=== PATIENT | female | born 1960 | race Caucasian/White ===

== ENCOUNTER 2023-11-10 00:51 | Inpatient (IN) | payer OTHER ==
[2023-11-10] VITALS (58 sets, daily range): BP systolic 57–130; BP diastolic 34–102; PULSE 94–110; RESP 19–36; TEMP 97.3–98.8
[~2023-11-10] VITALS: Ht 162.6 cm; Wt 78.5 kg
[2023-11-10 01:49] LABS: HEMATOCRIT. 32.2 % (36.0-48.0); HEMOGLOBIN. 10.7 g/dL (12.0-16.0); MEAN CORPUSCULAR HGB CONC 33.2 g/dL (31.0-37.0); MEAN CORPUSCULAR VOLUME 93.2 fL (81.0-99.0); MEAN PLATELET VOLUME 9.7 fl (7.4-10.4); PLATELET 149 x1000/uL (130-400); RED BLOOD CELL COUNT 3.46 mill/uL (4.2-5.4); WHITE BLOOD COUNT 9.9 x1000/uL (4.5-11.0)
[2023-11-10 01:51] LABS: DIFFERENTIAL COMMENT 1
[2023-11-10 01:54] LABS: PARTIAL THROMBOPLASTIN TIME 30.3 sec (23.4-31.0); PROTHROMBIN TIME 11.4 sec (9.6-11.0)
[2023-11-10] MEDS: SODIUM CHLORIDE 0.9% 1000ML BAG (SEPSIS BOLUS) IV ONE (02:00)
[2023-11-10 02:07] LABS: ALANINE AMINOTRANSFERASE 112 IU/L (10-49); ALBUMIN 3.3 g/dL (3.2-4.8); ASPARTATE AMINOTRANSFERASE 217 IU/L (<34); BILIRUBIN TOTAL 1.2 mg/dL (0.1-1.0); CALCIUM 7.7 mg/dL (8.7-10.4); CARBON DIOXIDE 20 mEq/L (21-32); CHLORIDE 105 mEq/L (98-107); CREATININE 1.5 mg/dL (0.6-1.0); GLUCOSE 108 mg/dL (70-105); POTASSIUM 2.9 mEq/L (3.5-5.1); PROTEIN TOTAL 5.7 g/dL (6.0-8.3); SODIUM 136 mEq/L (136-145); TROPONIN I HIGH SENSITIVITY 13 ng/L (3.0-34); UREA NITROGEN BLOOD 12 mg/dL (9-23)
[2023-11-10 02:12] LABS: LACTIC ACID 4.7 mmol/L (0.4-2.0)
[2023-11-10] MEDS: PIPERACILLIN/TAZO 3.375G/50ML 50 ML IV ONE (02:25)
[2023-11-10] MEDS: ONDANSETRON HCL 4MG/2ML INJ IV ONE (02:35)
[2023-11-10] MEDS: NOREPINEPHRINE 8MG/250ML PMX 250 ML IV ONE (02:57)
[2023-11-10] MEDS: SODIUM CHLORIDE 0.9% 1,000 ML IV ONE (03:13)
[2023-11-10] MEDS: KETOROLAC 15MG/ML VIAL IV ONE (03:25)
[2023-11-10] MEDS: VANCOMYCIN 1G PREMIX 200 ML IV ONE (03:30)
[2023-11-10 03:32] LABS: TROPONIN I HIGH SENSITIVITY 13 ng/L (3.0-34)
[2023-11-10 04:46] LABS: PLATELET ESTIMATE NORMAL
[2023-11-10 04:47] LABS: HOWELL-JOLLY BODIES 1+; TOXIC GRANULATION 1+
[2023-11-10] MEDS ORDERED: NOREPINEPHRINE 8MG/250ML PMX 250 ML IV PRN ×2 (07:21→08:00)
[2023-11-10] MEDS ORDERED: POTASSIUM CHLORIDE 20MEQ TABLET SR PO NR (08:15)
[2023-11-10] MEDS: SODIUM CHLORIDE 0.9% 1,000 ML IV SCH (09:00)
[2023-11-10] MEDS: KCL 20MEQ/100ML PREMIX 100 ML IV NR (09:00)
[2023-11-10] MEDS ORDERED: METRONIDAZOLE 500 MG PREMIX 100 ML IV SCH (10:00)
[2023-11-10] MEDS: MAGNESIUM 2 G PREMIX 50 ML IV NR (10:27)
[2023-11-10] MEDS: CEFTRIAXONE 2GM/50ML 50 ML IV SCH (10:28)
[2023-11-10] MEDS: ONDANSETRON HCL 4MG/2ML INJ IV PRN (10:59)
[2023-11-10] MEDS: METRONIDAZOLE 500 MG PREMIX 100 ML IV SCH (14:00)
[2023-11-10] MEDS: LACTATED RINGERS 1,000 ML IV ONE (14:15)
[2023-11-10 15:54] LABS: BG BASE EXCESS -10.2 mmol/L (-2.0-2.0); BG CARBOXYHEMOGLOBIN 0.3 % (0.5-1.5); BG DEOXYHEMOGLOBIN 6.2 % (0.0-5.0); BG FRACTION INSPIRED OXYGEN 21; BG METHEMOGLOBIN 0.4 % (0.0-1.5); BG OXYGEN SATURATION 93.8 % (92.0-98.5); BG OXYHEMOGLOBIN 93.1 % (94.0-97.0); BG PCO2 26.5 mmHg (35.0-45.0); BG PO2 69.7 mmHg (75.0-100.0); BG SAMPLE SITE RIGHT RADIAL; BG TOTAL HEMOGLOBIN 12.6 g/dL (12.0-18.0); BG VENT MODE ROOM AIR
[2023-11-10 18:05] LABS: HEMATOCRIT 35.8 % (36.0-48.0); HEMOGLOBIN 11.3 g/dL (12.0-16.0); MEAN CORPUSCULAR HGB CONC 31.6 g/dL (31.0-37.0); MEAN CORPUSCULAR VOLUME 95.1 fL (81.0-99.0); PLATELET 219 x1000/uL (130-400); RED BLOOD CELL COUNT 3.77 mill/uL (4.2-5.4); RED CELL DISTRIBUTION WIDTH 15.2 % (11.6-14.6); WHITE BLOOD COUNT 34.6 x1000/uL (4.5-11.0)
[2023-11-10 18:30] LABS: CALCIUM 7.1 mg/dL (8.7-10.4); POTASSIUM 4.2 mEq/L (3.5-5.1)
[2023-11-10] MEDS ORDERED: INSULIN LISPRO 100 UNITS/ML SUBCUT ONE (18:30)
[2023-11-10 18:31] LABS: CREATININE 2.8 mg/dL (0.6-1.0)
[2023-11-10] MEDS: ENOXAPARIN 40MG/0.4ML SYR SUBCUT SCH (18:36)
[2023-11-10] MEDS: HYDROCODONE/ACETAMINOPHEN 5/325MG TABLET PO PRN (19:29)
[2023-11-10] MEDS ORDERED: CLONIDINE 0.1MG TABLET PO PRN (19:30)
[2023-11-10] MEDS: VANCOMYCIN 500MG PREMIX 100 ML IV NR (20:00)
[2023-11-10] MEDS: MEROPENEM 500MG/50ML 50 ML IV SCH (20:47)
[2023-11-10] MEDS: NOREPINEPHRINE 32 MG in DEXT 5% WATER 218 ML IV PRN (21:06)
[2023-11-10] MEDS ORDERED: MEROPENEM 1G/100ML 100 ML IV SCH (22:00)
[2023-11-10] MEDS ORDERED: VANCOMYCIN 750MG PREMIX 150 ML IV SCH (22:00)
[2023-11-10] MEDS: ACETAMINOPHEN 325MG TABLET PO PRN (22:49)
[2023-11-11] VITALS (121 sets, daily range): BP systolic 48–203; BP diastolic 13–89; PULSE 73–175; RESP 0–42; TEMP 94.3–98.6
[2023-11-11] MEDS: MORPHINE SULFATE 2 MG/ML CPJ (NOT FOR IM USE) IV NR ×2 (03:23→09:50)
[2023-11-11 04:43] LABS: HEMATOCRIT. 40.5 % (36.0-48.0); HEMOGLOBIN. 12.7 g/dL (12.0-16.0); MEAN CORPUSCULAR HEMOGLOBIN 29.9 pg (28.0-32.0); MEAN CORPUSCULAR HGB CONC 31.5 g/dL (31.0-37.0); MEAN CORPUSCULAR VOLUME 95.1 fL (81.0-99.0); MEAN PLATELET VOLUME 9.8 fl (7.4-10.4); PLATELET 211 x1000/uL (130-400); RED BLOOD CELL COUNT 4.26 mill/uL (4.2-5.4); RED CELL DISTRIBUTION WIDTH 15.1 % (11.6-14.6)
[2023-11-11 05:01] LABS: ALANINE AMINOTRANSFERASE 186 IU/L (10-49); ALBUMIN 3.3 g/dL (3.2-4.8); ASPARTATE AMINOTRANSFERASE 227 IU/L (<34); BILIRUBIN DIRECT 1.2 mg/dL (<=3.0); BILIRUBIN TOTAL 1.5 mg/dL (0.1-1.0); CALCIUM 7.3 mg/dL (8.7-10.4); CARBON DIOXIDE 14 mEq/L (21-32); CHLORIDE 108 mEq/L (98-107); CHOLESTEROL 87 mg/dL (<200); CREATININE 3.5 mg/dL (0.6-1.0); GLUCOSE 113 mg/dL (70-105); HDL CHOLESTEROL < 20 mg/dL (>65); LDL CHOLESTEROL 28 mg/dL (5-100); PHOSPHORUS 5.1 mg/dL (2.5-4.9); POTASSIUM 5.5 mEq/L (3.5-5.1); PROTEIN TOTAL 5.9 g/dL (6.0-8.3); SODIUM 136 mEq/L (136-145); TRIGLYCERIDE 120 mg/dL (0-150); UREA NITROGEN BLOOD 27 mg/dL (9-23)
[2023-11-11 05:28] LABS: TROPONIN I HIGH SENSITIVITY 8888 ng/L (3.0-34)
[2023-11-11] MEDS ORDERED: HEPARIN BOLUS PRN aPTT <30 IV (06:00)
[2023-11-11] MEDS ORDERED: HEPARIN BOLUS PRN aPTT 30-44 IV ×2 (06:00)
[2023-11-11] MEDS: HEPARIN 25,000 UNITS PREMIX 250 ML IV SCH (06:13)
[2023-11-11] MEDS: PHENYLEPHRINE 50MG/250ML PMX 250 ML IV PRN (06:29)
[2023-11-11] MEDS: HEPARIN 60 UNITS/KG BOLUS IV NR (06:37)
[2023-11-11 06:46] LABS: DIFFERENTIAL COMMENT 1; WHITE BLOOD COUNT 48.4 x1000/uL (4.5-11.0)
[2023-11-11] MEDS: VASOPRESSIN 20 UNIT in SODIUM CHLORIDE 0.9% 99 ML IV PRN (07:03)
[2023-11-11] MEDS: SODIUM BICARBONATE 8.4% 1 MEQ/ML 50ML SYR IV NR ×4 (07:55→13:38)
[2023-11-11] MEDS ORDERED: DOXYCYCLINE HYCLATE 100 MG/VIAL IV SCH (08:00)
[2023-11-11] MEDS: LIDOCAINE HCL 1% 10 MG/ML 5ML VIAL IJ NR (08:12)
[2023-11-11] MEDS ORDERED: HYDROCORTISONE SOD SUCCINATE 100 MG/2 ML VIAL IV SCH (09:00)
[2023-11-11] MEDS: CALCIUM GLUCONATE 1GM PREMIX 50 ML IV NR (09:13)
[2023-11-11] MEDS: PANTOPRAZOLE SODIUM 40 MG/VIAL IV SCH (09:13)
[2023-11-11] MEDS: DOXYCYCLINE 100MG/100ML 100 ML IV SCH (09:13)
[2023-11-11] MEDS: METHYLPREDNISOLONE SOD SUCC 40MG/ML (ACT-O-VIAL) IV SCH (09:16)
[2023-11-11 10:14] LABS: BG CARBOXYHEMOGLOBIN 0.3 % (0.5-1.5); BG DEOXYHEMOGLOBIN 4.4 % (0.0-5.0); BG FRACTION INSPIRED OXYGEN 100; BG HCO3 ACT 7.2 mmol/L (22.0-26.0); BG OXYGEN SATURATION 95.6 % (92.0-98.5); BG OXYHEMOGLOBIN 95.3 % (94.0-97.0); BG PCO2 19.4 mmHg (35.0-45.0); BG PH 7.187 (7.350-7.450); BG PO2 87.8 mmHg (75.0-100.0); BG SAMPLE SITE ALINE; BG TOTAL HEMOGLOBIN 12.6 g/dL (12.0-18.0); BG VENT MODE MASK - NRB
[2023-11-11] MEDS ORDERED: AMIODARONE HCL 150 MG in DEXT 5% WATER 100 ML IV ONE (10:30)
[2023-11-11 10:38] LABS: CHLORIDE 106 mEq/L (98-107); GLUCOSE 110 mg/dL (70-105); SODIUM 134 mEq/L (136-145)
[2023-11-11 10:39] LABS: CALCIUM 6.6 mg/dL (8.7-10.4); CREATINE KINASE 1027 IU/L (34-145); CREATININE 3.7 mg/dL (0.6-1.0); PHOSPHORUS 7.9 mg/dL (2.5-4.9); UREA NITROGEN BLOOD 34 mg/dL (9-23)
[2023-11-11 10:43] LABS: HEMATOCRIT 35.3 % (36.0-48.0); HEMOGLOBIN 11.5 g/dL (12.0-16.0)
[2023-11-11 10:47] LABS: PLATELET ESTIMATE NORMAL
[2023-11-11] MEDS: MAGNESIUM 2 G PREMIX 50 ML IV NR (10:47)
[2023-11-11] MEDS: AMIODARONE 150MG/100ML 100 ML IV NR (10:48)
[2023-11-11] MEDS: HYDROMORPHONE HCL/PF 2MG/ML CPJ IV NR (10:49)
[2023-11-11 11:04] LABS: TROPONIN I HIGH SENSITIVITY 124922 ng/L (3.0-34)
[2023-11-11 11:05] LABS: CARBON DIOXIDE < 10 mEq/L (21-32)
[2023-11-11] MEDS ORDERED: NALOXONE HCL 0.4MG/ML VIAL IV PRN (11:45)
[2023-11-11] MEDS ORDERED: FENTANYL 2500MCG/250ML PMX 250 ML IV ONE (11:45)
[2023-11-11] MEDS ORDERED: FENTANYL CITRATE 2,500 MCG in SODIUM CHLORIDE 0.9% 200 ML IV PRN (12:00)
[2023-11-11] MEDS: PROPOFOL 10MG/ML 100ML 100 ML IV PRN (12:01)
[2023-11-11] MEDS ORDERED: LIDOCAINE HCL 1% 10 MG/ML 10ML VIAL ONE (13:04)
[2023-11-11 13:14] LABS: BG BASE EXCESS -20.8 mmol/L (-2.0-2.0); BG CARBOXYHEMOGLOBIN 0.3 % (0.5-1.5); BG DEOXYHEMOGLOBIN 2.6 % (0.0-5.0); BG FRACTION INSPIRED OXYGEN 50; BG METHEMOGLOBIN 0.3 % (0.0-1.5); BG OXYGEN SATURATION 97.4 % (92.0-98.5); BG OXYHEMOGLOBIN 96.8 % (94.0-97.0); BG PCO2 28.2 mmHg (35.0-45.0); BG PH 7.071 (7.350-7.450); BG PO2 124.7 mmHg (75.0-100.0); BG SAMPLE SITE ALINE; BG TOTAL HEMOGLOBIN 12.4 g/dL (12.0-18.0); BG VENT MODE VENT - AC
[2023-11-11] MEDS: SODIUM POLYSTYRENE SULFONATE 15 G/60 ML BOT PO NR (13:20)
[2023-11-11] MEDS: SODIUM BICARBONATE 150 MEQ in DEXTROSE 5% WATER 850 ML IV SCH (13:20)
[2023-11-11] MEDS ORDERED: AMIODARONE HCL 900 MG in DEXT 5% WATER 482 ML IV SCH (13:30)
[2023-11-11 14:07] LABS: TROPONIN I HIGH SENSITIVITY 33541 ng/L (3.0-34)
[2023-11-11 14:31] LABS: HEPATITIS A AB IGM NEGATIVE (Negative); HEPATITIS B CORE AB IGM NEGATIVE (Negative); HEPATITIS B SURFACE ANTIGEN NEGATIVE (Negative); HEPATITIS C AB NON REACTIVE (Neg) (Negative)
[2023-11-11 17:30] LABS: CLARITY URINE TURBID (CLEAR); COLOR URINE DARK YELLOW (YELLOW); GLUCOSE URINE TRACE (NEGATIVE); KETONES URINE TRACE (NEGATIVE); LEUKOCYTE ESTERASE URINE 1+ (NEGATIVE); NITRITE URINE NEGATIVE (NEGATIVE); OCCULT BLOOD URINE 2+ (NEGATIVE); PH URINE 5.5 (4.5-8.0); PROTEIN URINE 2+ (NEGATIVE); SPECIFIC GRAVITY URINE 1.021 (1.005-1.030); UROBILINOGEN URINE 0.2 E.U./dL (0.2-1.0)
[2023-11-11 17:49] LABS: BACTERIA URINE 4+; SQUAMOUS EPITHELIAL CELL URINE 1+ /lpf (RARE/1+)
[2023-11-11 17:50] LABS: FINE GRANULAR CASTS URINE 0-5 /lpf
[2023-11-11 18:33] LABS: CREATININE URINE RANDOM 129.4 mg/dL
[2023-11-11 19:08] LABS: BG CARBOXYHEMOGLOBIN 0.3 % (0.5-1.5); BG DEOXYHEMOGLOBIN 1.9 % (0.0-5.0); BG FRACTION INSPIRED OXYGEN 40; BG HCO3 ACT 12.5 mmol/L (22.0-26.0); BG METHEMOGLOBIN 0.1 % (0.0-1.5); BG OXYGEN SATURATION 98.1 % (92.0-98.5); BG OXYHEMOGLOBIN 97.7 % (94.0-97.0); BG PCO2 27.8 mmHg (35.0-45.0); BG PH 7.269 (7.350-7.450); BG PO2 131.9 mmHg (75.0-100.0); BG SAMPLE SITE ALINE; BG TOTAL HEMOGLOBIN 12.5 g/dL (12.0-18.0); BG VENT MODE VENT - AC
[2023-11-11] MEDS: IPRATROPIUM/ALBUTEROL 0.5-3(2.5)MG/3ML NEB HHN SCH (21:24)
[2023-11-12] VITALS (95 sets, daily range): BP systolic 80–139; BP diastolic 48–101; PULSE 74–112; RESP 24–37; TEMP 97.4–98.8
[2023-11-12 05:18] LABS: LACTIC ACID 12.7 mmol/L (0.4-2.0)
[2023-11-12 06:27] LABS: HEMOGLOBIN. 11.5 g/dL (12.0-16.0); MEAN CORPUSCULAR HEMOGLOBIN 29.8 pg (28.0-32.0); MEAN CORPUSCULAR HGB CONC 32.8 g/dL (31.0-37.0); MEAN CORPUSCULAR VOLUME 90.9 fL (81.0-99.0); MEAN PLATELET VOLUME 10.3 fl (7.4-10.4); PLATELET 162 x1000/uL (130-400); RED BLOOD CELL COUNT 3.85 mill/uL (4.2-5.4); RED CELL DISTRIBUTION WIDTH 14.6 % (11.6-14.6)
[2023-11-12 07:09] LABS: ALANINE AMINOTRANSFERASE 3259 IU/L (10-49); ALBUMIN 2.9 g/dL (3.2-4.8); BILIRUBIN TOTAL 2.3 mg/dL (0.1-1.0); CALCIUM 6.2 mg/dL (8.7-10.4); CARBON DIOXIDE 17 mEq/L (21-32); CHLORIDE 101 mEq/L (98-107); CREATININE 4.6 mg/dL (0.6-1.0); GLUCOSE 167 mg/dL (70-105); POTASSIUM 5.6 mEq/L (3.5-5.1); PROTEIN TOTAL 5.1 g/dL (6.0-8.3); SODIUM 137 mEq/L (136-145); TRIGLYCERIDE 153 mg/dL (0-150); UREA NITROGEN BLOOD 56 mg/dL (9-23)
[2023-11-12 07:20] LABS: PHOSPHORUS 8.5 mg/dL (2.5-4.9)
[2023-11-12 08:06] LABS: DIFFERENTIAL COMMENT 1; WHITE BLOOD COUNT 59.3 x1000/uL (4.5-11.0)
[2023-11-12 08:19] LABS: ASPARTATE AMINOTRANSFERASE 505 IU/L (<34)
[2023-11-12 08:27] LABS: BG BASE EXCESS -8.3 mmol/L (-2.0-2.0); BG CARBOXYHEMOGLOBIN 0.3 % (0.5-1.5); BG DEOXYHEMOGLOBIN 1.6 % (0.0-5.0); BG FRACTION INSPIRED OXYGEN 40; BG HCO3 ACT 16.1 mmol/L (22.0-26.0); BG METHEMOGLOBIN 0.3 % (0.0-1.5); BG OXYGEN SATURATION 98.4 % (92.0-98.5); BG OXYHEMOGLOBIN 97.8 % (94.0-97.0); BG PH 7.348 (7.350-7.450); BG PO2 137.1 mmHg (75.0-100.0); BG SAMPLE SITE ALINE; BG TOTAL HEMOGLOBIN 12.4 g/dL (12.0-18.0); BG TOTAL RESPIRATORY RATE 32 b/min; BG VENT MODE VENT - AC
[2023-11-12] MEDS: MEROPENEM 500MG/50ML 50 ML IV SCH (08:36)
[2023-11-12] MEDS: DIPHENHYDRAMINE 50MG/ML VIAL IV NR (09:14)
[2023-11-12 13:05] LABS: NUCLEATED RED BLOOD CELLS 1 /100 WBC
[2023-11-12 13:06] LABS: PLATELET ESTIMATE NORMAL
[2023-11-12] MEDS: DIPHENHYDRAMINE 50MG/ML VIAL IV PRN (13:54)
[2023-11-12] MEDS ORDERED: CLINDAMYCIN 600 MG in DEXTROSE 5% WATER 50 ML IV SCH (14:30)
[2023-11-12] MEDS: CLINDAMYCIN 600MG PREMIX 50 ML IV SCH (16:09)
[2023-11-12] MEDS ORDERED: VANCOMYCIN 500MG PREMIX 100 ML IV NR (18:00)
[2023-11-12] MEDS: PROPOFOL 10MG/ML 100ML 100 ML IV PRN (18:57)
[2023-11-13] VITALS (94 sets, daily range): BP systolic 68–139; BP diastolic 43–95; PULSE 65–94; RESP 16–32; TEMP 97.8–99.3
[2023-11-13 05:42] LABS: HEMATOCRIT 33.5 % (36.0-48.0); HEMATOCRIT. 33.5 % (36.0-48.0); HEMOGLOBIN 11.4 g/dL (12.0-16.0); HEMOGLOBIN. 11.4 g/dL (12.0-16.0); MEAN CORPUSCULAR HEMOGLOBIN 30.1 pg (28.0-32.0); MEAN CORPUSCULAR VOLUME 88.5 fL (81.0-99.0); MEAN PLATELET VOLUME 10.2 fl (7.4-10.4); PLATELET 112 x1000/uL (130-400); RED BLOOD CELL COUNT 3.79 mill/uL (4.2-5.4); RED CELL DISTRIBUTION WIDTH 14.1 % (11.6-14.6)
[2023-11-13 06:27] LABS: ALANINE AMINOTRANSFERASE > 3300 IU/L (10-49); ALBUMIN 2.4 g/dL (3.2-4.8); ASPARTATE AMINOTRANSFERASE 5053 IU/L (<34); BILIRUBIN TOTAL 2.4 mg/dL (0.1-1.0); CARBON DIOXIDE 24 mEq/L (21-32); CHLORIDE 98 mEq/L (98-107); CREATININE 3.9 mg/dL (0.6-1.0); GLUCOSE 171 mg/dL (70-105); PHOSPHORUS 5.6 mg/dL (2.5-4.9); POTASSIUM 4.8 mEq/L (3.5-5.1); PROTEIN TOTAL 4.3 g/dL (6.0-8.3); SODIUM 136 mEq/L (136-145); TRIGLYCERIDE 188 mg/dL (0-150); UREA NITROGEN BLOOD 50 mg/dL (9-23); VANCOMYCIN TROUGH 13.8 ug/mL (5.0-10.0)
[2023-11-13 06:35] LABS: CALCIUM 5.9 mg/dL (8.7-10.4)
[2023-11-13 06:40] LABS: DIFFERENTIAL COMMENT 1
[2023-11-13 06:42] LABS: WHITE BLOOD COUNT 40.9 x1000/uL (4.5-11.0)
[2023-11-13 09:07] LABS: BG CARBOXYHEMOGLOBIN 0.3 % (0.5-1.5); BG DEOXYHEMOGLOBIN 2.6 % (0.0-5.0); BG FRACTION INSPIRED OXYGEN 40; BG HCO3 ACT 23.8 mmol/L (22.0-26.0); BG METHEMOGLOBIN 0.2 % (0.0-1.5); BG OXYGEN SATURATION 97.4 % (92.0-98.5); BG OXYHEMOGLOBIN 96.9 % (94.0-97.0); BG PCO2 25.6 mmHg (35.0-45.0); BG PH 7.586 (7.350-7.450); BG PO2 102.1 mmHg (75.0-100.0); BG SAMPLE SITE ALINE; BG TOTAL HEMOGLOBIN 11.9 g/dL (12.0-18.0); BG VENT MODE VENT - AC
[2023-11-13 09:49] LABS: IRON 147 ug/dL (50-170); TOTAL IRON BINDING CAPACITY 403 ug/dl (250-425)
[2023-11-13] MEDS: MIDODRINE HCL 5MG TABLET PO SCH (13:16)
[2023-11-13] MEDS: CALCIUM GLUCONATE 1GM PREMIX 50 ML IV NR (13:16)
[2023-11-13 13:50] LABS: NUCLEATED RED BLOOD CELLS 1 /100 WBC; PLATELET ESTIMATE SLIGHTLY DECREASED
[2023-11-13] MEDS: VANCOMYCIN 1.25GM PMX (XELLIA) 250 ML IV NR (16:21)
[2023-11-13] MEDS ORDERED: ALBUMIN HUMAN 12.5GM/50ML (25%) IV ONE (21:17)
[2023-11-13] MEDS ORDERED: ALBUMIN HUMAN 25GM/100ML (25%) IV ONE (21:46)
[2023-11-13] MEDS ORDERED: ROCURONIUM BROMIDE 10MG/ML VIAL 5ML IV ONE ×2 (21:50)
[2023-11-13] MEDS ORDERED: FENTANYL CITRATE/PF 50MCG/ML 2ML VIAL ONE (21:54)
[2023-11-13] MEDS ORDERED: MIDAZOLAM HCL 2 MG/2 ML VIAL ONE (21:54)
[2023-11-13] MEDS ORDERED: ONDANSETRON HCL 4MG/2ML INJ ONE (22:02)
[2023-11-13] MEDS ORDERED: DEXAMETHASONE 4MG/ML 1ML VIAL ONE (22:02)
[2023-11-13] MEDS ORDERED: FENTANYL CITRATE/PF 50MCG/ML 2ML VIAL IV PRN (23:00)
[2023-11-13] MEDS ORDERED: HYDROMORPHONE HCL/PF 2MG/ML CPJ IV PRN (23:00)
[2023-11-14] VITALS (110 sets, daily range): BP systolic 64–147; BP diastolic 41–108; PULSE 55–97; RESP 15–30; TEMP 97.7–98.8
[2023-11-14 00:51] LABS: FERRITIN 4309 ng/mL (10-291); FOLIC ACID (FOLATE) SERUM 12.21 ng/mL (>5.38)
[2023-11-14 00:58] LABS: VITAMIN B12 SERUM > 2000 pg/mL (211-911)
[2023-11-14] MEDS: PROPOFOL 10MG/ML 100ML 100 ML IV PRN (02:57)
[2023-11-14 05:33] LABS: HEMATOCRIT. 31.9 % (36.0-48.0); HEMOGLOBIN. 10.7 g/dL (12.0-16.0); MEAN CORPUSCULAR HEMOGLOBIN 29.9 pg (28.0-32.0); MEAN CORPUSCULAR HGB CONC 33.4 g/dL (31.0-37.0); MEAN CORPUSCULAR VOLUME 89.5 fL (81.0-99.0); MEAN PLATELET VOLUME 10.6 fl (7.4-10.4); PLATELET 81 x1000/uL (130-400); RED BLOOD CELL COUNT 3.57 mill/uL (4.2-5.4); RED CELL DISTRIBUTION WIDTH 14.3 % (11.6-14.6); WHITE BLOOD COUNT 39.7 x1000/uL (4.5-11.0)
[2023-11-14 05:51] LABS: ALANINE AMINOTRANSFERASE 2108 IU/L (10-49); ALBUMIN 2.8 g/dL (3.2-4.8); ASPARTATE AMINOTRANSFERASE 1402 IU/L (<34); BILIRUBIN TOTAL 2.5 mg/dL (0.1-1.0); CALCIUM 6.8 mg/dL (8.7-10.4); CARBON DIOXIDE 27 mEq/L (21-32); CHLORIDE 97 mEq/L (98-107); CREATININE 4.2 mg/dL (0.6-1.0); GLUCOSE 196 mg/dL (70-105); PHOSPHORUS 5.8 mg/dL (2.5-4.9); POTASSIUM 4.9 mEq/L (3.5-5.1); PROTEIN TOTAL 5.2 g/dL (6.0-8.3); SODIUM 136 mEq/L (136-145); UREA NITROGEN BLOOD 62 mg/dL (9-23)
[2023-11-14 06:53] LABS: DIFFERENTIAL COMMENT 1
[2023-11-14 07:40] LABS: LACTIC ACID 2.8 mmol/L (0.4-2.0)
[2023-11-14 08:21] LABS: BG BASE EXCESS 0.3 mmol/L (-2.0-2.0); BG CARBOXYHEMOGLOBIN 0.2 % (0.5-1.5); BG DEOXYHEMOGLOBIN 3.1 % (0.0-5.0); BG FRACTION INSPIRED OXYGEN 40; BG HCO3 ACT 23.7 mmol/L (22.0-26.0); BG METHEMOGLOBIN 1.3 % (0.0-1.5); BG OXYGEN SATURATION 96.9 % (92.0-98.5); BG OXYHEMOGLOBIN 95.4 % (94.0-97.0); BG PCO2 34.1 mmHg (35.0-45.0); BG PH 7.459 (7.350-7.450); BG PO2 104.7 mmHg (75.0-100.0); BG SAMPLE SITE ALINE; BG VENT MODE VENT - AC
[2023-11-14] MEDS: MIDODRINE HCL 5MG TABLET PO SCH (12:19)
[2023-11-14 17:29] LABS: NUCLEATED RED BLOOD CELLS 2 /100 WBC
[2023-11-14 17:30] LABS: PLATELET ESTIMATE DECREASED
[2023-11-14] MEDS: SODIUM CHLORIDE 0.9% 250 ML IV ONE (17:46)
[2023-11-15] VITALS (115 sets, daily range): BP systolic 84–150; BP diastolic 57–99; PULSE 70–110; RESP 13–32; TEMP 98–98.8
[2023-11-15] MEDS: PROPOFOL 10MG/ML 100ML 100 ML IV PRN (04:21)
[2023-11-15 05:35] LABS: HEMATOCRIT. 33.9 % (36.0-48.0); HEMOGLOBIN. 11.3 g/dL (12.0-16.0); MEAN CORPUSCULAR HEMOGLOBIN 29.8 pg (28.0-32.0); MEAN CORPUSCULAR HGB CONC 33.3 g/dL (31.0-37.0); MEAN CORPUSCULAR VOLUME 89.6 fL (81.0-99.0); PLATELET 86 x1000/uL (130-400); RED BLOOD CELL COUNT 3.79 mill/uL (4.2-5.4); RED CELL DISTRIBUTION WIDTH 14.2 % (11.6-14.6)
[2023-11-15 05:59] LABS: CARBON DIOXIDE 23 mEq/L (21-32); CHLORIDE 97 mEq/L (98-107); CREATININE 3.9 mg/dL (0.6-1.0); GLUCOSE 162 mg/dL (70-105); PHOSPHORUS 6.3 mg/dL (2.5-4.9); POTASSIUM 5.2 mEq/L (3.5-5.1); SODIUM 132 mEq/L (136-145); TRIGLYCERIDE 350 mg/dL (0-150); UREA NITROGEN BLOOD 59 mg/dL (9-23)
[2023-11-15 07:41] LABS: DIFFERENTIAL COMMENT 1
[2023-11-15 07:42] LABS: WHITE BLOOD COUNT 44.7 x1000/uL (4.5-11.0)
[2023-11-15 09:02] LABS: BG BASE EXCESS -1.4 mmol/L (-2.0-2.0); BG CARBOXYHEMOGLOBIN 0.3 % (0.5-1.5); BG DEOXYHEMOGLOBIN 2.3 % (0.0-5.0); BG FRACTION INSPIRED OXYGEN 40; BG METHEMOGLOBIN 0.4 % (0.0-1.5); BG OXYGEN SATURATION 97.7 % (92.0-98.5); BG PCO2 32.9 mmHg (35.0-45.0); BG PH 7.443 (7.350-7.450); BG PO2 108.6 mmHg (75.0-100.0); BG SAMPLE SITE ALINE; BG TOTAL HEMOGLOBIN 12.3 g/dL (12.0-18.0); BG VENT MODE VENT - AC
[2023-11-15] MEDS ORDERED: LIDOCAINE HCL 1% 10 MG/ML 10ML VIAL ONE (09:17)
[2023-11-15 11:57] LABS: HEPATITIS A AB IGM NEGATIVE (Negative); HEPATITIS B CORE AB IGM NEGATIVE (Negative); HEPATITIS B SURFACE ANTIGEN NEGATIVE (Negative); HEPATITIS C AB NON REACTIVE (Neg) (Negative)
[2023-11-15] MEDS: MIDODRINE HCL 5MG TABLET PO SCH (13:39)
[2023-11-15 15:19] LABS: BG CARBOXYHEMOGLOBIN 0.2 % (0.5-1.5); BG DEOXYHEMOGLOBIN 5.2 % (0.0-5.0); BG FRACTION INSPIRED OXYGEN 35; BG METHEMOGLOBIN 0.3 % (0.0-1.5); BG OXYGEN SATURATION 94.8 % (92.0-98.5); BG OXYHEMOGLOBIN 94.3 % (94.0-97.0); BG PCO2 30.3 mmHg (35.0-45.0); BG PH 7.459 (7.350-7.450); BG PO2 79.3 mmHg (75.0-100.0); BG SAMPLE SITE ALINE; BG TOTAL HEMOGLOBIN 11.5 g/dL (12.0-18.0); BG VENT MODE VENT - CPAP
[2023-11-15] MEDS: DEXMEDETOMIDINE 400 MCG/100 ML 100 ML IV PRN (15:38)
[2023-11-15 17:38] LABS: NUCLEATED RED BLOOD CELLS 5 /100 WBC; PLATELET ESTIMATE DECREASED
[2023-11-15] MEDS ORDERED: VANCOMYCIN 1GM/200ML PMX (BAXTER) IV NR (21:00)
[2023-11-15] MEDS: METHYLPREDNISOLONE SOD SUCC 40MG/ML (ACT-O-VIAL) IV SCH (21:31)
[2023-11-16] VITALS (109 sets, daily range): BP systolic 96–139; BP diastolic 65–103; PULSE 64–115; RESP 13–26; TEMP 98.3–101.1
[2023-11-16 06:04] LABS: HEMATOCRIT 33.8 % (36.0-48.0); HEMATOCRIT. 33.8 % (36.0-48.0); HEMOGLOBIN 11.3 g/dL (12.0-16.0); HEMOGLOBIN. 11.3 g/dL (12.0-16.0); MEAN CORPUSCULAR HEMOGLOBIN 29.9 pg (28.0-32.0); MEAN CORPUSCULAR HGB CONC 33.5 g/dL (31.0-37.0); MEAN CORPUSCULAR VOLUME 89.2 fL (81.0-99.0); MEAN PLATELET VOLUME 11.4 fl (7.4-10.4); PLATELET 96 x1000/uL (130-400); RED BLOOD CELL COUNT 3.78 mill/uL (4.2-5.4); RED CELL DISTRIBUTION WIDTH 14.3 % (11.6-14.6)
[2023-11-16 06:29] LABS: DIFFERENTIAL COMMENT 1
[2023-11-16 07:02] LABS: ALANINE AMINOTRANSFERASE 1015 IU/L (10-49); ALBUMIN 2.4 g/dL (3.2-4.8); ASPARTATE AMINOTRANSFERASE 300 IU/L (<34); BILIRUBIN TOTAL 1.7 mg/dL (0.1-1.0); CALCIUM 6.5 mg/dL (8.7-10.4); CARBON DIOXIDE 24 mEq/L (21-32); CHLORIDE 99 mEq/L (98-107); CREATININE 4.1 mg/dL (0.6-1.0); GLUCOSE 190 mg/dL (70-105); PHOSPHORUS 7.3 mg/dL (2.5-4.9); POTASSIUM 5.2 mEq/L (3.5-5.1); PROTEIN TOTAL 4.9 g/dL (6.0-8.3); SODIUM 134 mEq/L (136-145); TRIGLYCERIDE 285 mg/dL (0-150); UREA NITROGEN BLOOD 63 mg/dL (9-23)
[2023-11-16] MEDS ORDERED: HYDROCODONE/ACETAMINOPHEN 10/325MG TABLET PO PRN (09:15)
[2023-11-16 09:39] LABS: NUCLEATED RED BLOOD CELLS 9 /100 WBC; PLATELET ESTIMATE SLIGHTLY DECREASED
[2023-11-16 10:57] LABS: BG BASE EXCESS -0.1 mmol/L (-2.0-2.0); BG CARBOXYHEMOGLOBIN 0.2 % (0.5-1.5); BG DEOXYHEMOGLOBIN 3.2 % (0.0-5.0); BG FRACTION INSPIRED OXYGEN 35; BG HCO3 ACT 22.9 mmol/L (22.0-26.0); BG METHEMOGLOBIN 0.3 % (0.0-1.5); BG OXYGEN SATURATION 96.8 % (92.0-98.5); BG OXYHEMOGLOBIN 96.3 % (94.0-97.0); BG PH 7.472 (7.350-7.450); BG PO2 91.7 mmHg (75.0-100.0); BG SAMPLE SITE ALINE; BG TOTAL HEMOGLOBIN 11.9 g/dL (12.0-18.0); BG TOTAL RESPIRATORY RATE 21 b/min; BG VENT MODE VENT - AC
[2023-11-17] VITALS (94 sets, daily range): BP systolic 85–128; BP diastolic 60–96; PULSE 67–103; RESP 15–35; TEMP 97.1–100.2
[2023-11-17 06:07] LABS: HEMATOCRIT. 31.8 % (36.0-48.0); HEMOGLOBIN. 10.5 g/dL (12.0-16.0); MEAN CORPUSCULAR HEMOGLOBIN 29.6 pg (28.0-32.0); MEAN CORPUSCULAR HGB CONC 33.2 g/dL (31.0-37.0); MEAN CORPUSCULAR VOLUME 89.4 fL (81.0-99.0); MEAN PLATELET VOLUME 11.4 fl (7.4-10.4); PLATELET 100 x1000/uL (130-400); RED BLOOD CELL COUNT 3.56 mill/uL (4.2-5.4); RED CELL DISTRIBUTION WIDTH 14.1 % (11.6-14.6)
[2023-11-17 06:27] LABS: CALCIUM 6.3 mg/dL (8.7-10.4); POTASSIUM 4.7 mEq/L (3.5-5.1)
[2023-11-17 07:27] LABS: DIFFERENTIAL COMMENT 1; WHITE BLOOD COUNT 49.5 x1000/uL (4.5-11.0)
[2023-11-17 09:04] LABS: BG BASE EXCESS -2.6 mmol/L (-2.0-2.0); BG CARBOXYHEMOGLOBIN 0.3 % (0.5-1.5); BG HCO3 ACT 20.6 mmol/L (22.0-26.0); BG OXYHEMOGLOBIN 91.7 % (94.0-97.0); BG PCO2 30.7 mmHg (35.0-45.0); BG PH 7.444 (7.350-7.450); BG PO2 64.1 mmHg (75.0-100.0); BG SAMPLE SITE RIGHT RADIAL; BG VENT MODE VENT - AC
[2023-11-17 09:43] LABS: NUCLEATED RED BLOOD CELLS 3 /100 WBC; PLATELET ESTIMATE SLIGHTLY DECREASED
[2023-11-17] MEDS: CALCIUM CARBONATE 500MG TABLET CHEW PO SCH (13:00)
[2023-11-17] MEDS: CALCIUM GLUCONATE 1GM PREMIX 50 ML IV NR (14:00)
[2023-11-17 15:58] LABS: BG BASE EXCESS -2.4 mmol/L (-2.0-2.0); BG CARBOXYHEMOGLOBIN 0.3 % (0.5-1.5); BG DEOXYHEMOGLOBIN 4.3 % (0.0-5.0); BG HCO3 ACT 20.1 mmol/L (22.0-26.0); BG METHEMOGLOBIN 0.1 % (0.0-1.5); BG OXYGEN SATURATION 95.7 % (92.0-98.5); BG OXYHEMOGLOBIN 95.3 % (94.0-97.0); BG PCO2 28.1 mmHg (35.0-45.0); BG PH 7.473 (7.350-7.450); BG PO2 80.8 mmHg (75.0-100.0); BG SAMPLE SITE RIGHT RADIAL; BG TOTAL HEMOGLOBIN 11.7 g/dL (12.0-18.0); BG VENT MODE VENT - CPAP
[2023-11-18] VITALS (114 sets, daily range): BP systolic 79–117; BP diastolic 50–80; PULSE 52–90; RESP 12–25; TEMP 97.2–98.9
[2023-11-18 05:26] LABS: HEMATOCRIT. 29.3 % (36.0-48.0); HEMOGLOBIN. 9.9 g/dL (12.0-16.0); MEAN CORPUSCULAR HEMOGLOBIN 30.2 pg (28.0-32.0); MEAN CORPUSCULAR HGB CONC 33.9 g/dL (31.0-37.0); MEAN PLATELET VOLUME 11.8 fl (7.4-10.4); PLATELET 100 x1000/uL (130-400); RED CELL DISTRIBUTION WIDTH 13.9 % (11.6-14.6)
[2023-11-18 05:43] LABS: CALCIUM 6.7 mg/dL (8.7-10.4); CARBON DIOXIDE 20 mEq/L (21-32); CHLORIDE 101 mEq/L (98-107); GLUCOSE 174 mg/dL (70-105); POTASSIUM 4.6 mEq/L (3.5-5.1); SODIUM 133 mEq/L (136-145)
[2023-11-18 06:44] LABS: DIFFERENTIAL COMMENT 1
[2023-11-18 06:45] LABS: WHITE BLOOD COUNT 45.6 x1000/uL (4.5-11.0)
[2023-11-18 07:02] LABS: CREATININE 5.1 mg/dL (0.6-1.0); UREA NITROGEN BLOOD 108 mg/dL (9-23)
[2023-11-18 07:05] LABS: PHOSPHORUS 8.7 mg/dL (2.5-4.9)
[2023-11-18] MEDS: METHYLPREDNISOLONE SOD SUCC 40MG/ML (ACT-O-VIAL) IV SCH (08:23)
[2023-11-18 09:00] LABS: BG BASE EXCESS -4.3 mmol/L (-2.0-2.0); BG CARBOXYHEMOGLOBIN 0.2 % (0.5-1.5); BG DEOXYHEMOGLOBIN 2.7 % (0.0-5.0); BG FRACTION INSPIRED OXYGEN 35; BG HCO3 ACT 19.2 mmol/L (22.0-26.0); BG METHEMOGLOBIN 0.9 % (0.0-1.5); BG OXYGEN SATURATION 97.3 % (92.0-98.5); BG OXYHEMOGLOBIN 96.2 % (94.0-97.0); BG PCO2 30.3 mmHg (35.0-45.0); BG PO2 111.6 mmHg (75.0-100.0); BG SAMPLE SITE ALINE; BG TOTAL HEMOGLOBIN 10.9 g/dL (12.0-18.0); BG VENT MODE VENT - SIMV
[2023-11-18 12:49] LABS: PLATELET ESTIMATE SLIGHTLY DECREASED
[2023-11-18 13:44] LABS: BG BASE EXCESS -3.6 mmol/L (-2.0-2.0); BG CARBOXYHEMOGLOBIN 0.3 % (0.5-1.5); BG FRACTION INSPIRED OXYGEN 35; BG HCO3 ACT 19.4 mmol/L (22.0-26.0); BG METHEMOGLOBIN 0.3 % (0.0-1.5); BG OXYHEMOGLOBIN 93.4 % (94.0-97.0); BG PCO2 28.5 mmHg (35.0-45.0); BG PO2 73.3 mmHg (75.0-100.0); BG SAMPLE SITE ALINE; BG TOTAL HEMOGLOBIN 11.4 g/dL (12.0-18.0); BG VENT MODE VENT - CPAP
[2023-11-18] MEDS: VANCOMYCIN 250MG/5ML ORAL SYRINGE PO SCH (15:00)
[2023-11-19] VITALS (81 sets, daily range): BP systolic 91–129; BP diastolic 64–84; PULSE 60–102; RESP 13–25; TEMP 97.6–98.2
[2023-11-19 05:50] LABS: HEMATOCRIT. 31.6 % (36.0-48.0); HEMOGLOBIN. 10.5 g/dL (12.0-16.0); MEAN CORPUSCULAR HGB CONC 33.2 g/dL (31.0-37.0); MEAN CORPUSCULAR VOLUME 90.4 fL (81.0-99.0); MEAN PLATELET VOLUME 11.8 fl (7.4-10.4); PLATELET 119 x1000/uL (130-400); RED CELL DISTRIBUTION WIDTH 14.1 % (11.6-14.6)
[2023-11-19 06:09] LABS: ALANINE AMINOTRANSFERASE 328 IU/L (10-49); ALBUMIN 2.4 g/dL (3.2-4.8); ASPARTATE AMINOTRANSFERASE 112 IU/L (<34); BILIRUBIN TOTAL 1.5 mg/dL (0.1-1.0); CALCIUM 7.4 mg/dL (8.7-10.4); CARBON DIOXIDE 22 mEq/L (21-32); CHLORIDE 103 mEq/L (98-107); CREATININE 4.3 mg/dL (0.6-1.0); GLUCOSE 136 mg/dL (70-105); PHOSPHORUS 7.9 mg/dL (2.5-4.9); POTASSIUM 4.7 mEq/L (3.5-5.1); PROTEIN TOTAL 5.2 g/dL (6.0-8.3); SODIUM 137 mEq/L (136-145); UREA NITROGEN BLOOD 93 mg/dL (9-23)
[2023-11-19 06:53] LABS: DIFFERENTIAL COMMENT 1; WHITE BLOOD COUNT 45.9 x1000/uL (4.5-11.0)
[2023-11-19 09:01] LABS: BG BASE EXCESS -1.3 mmol/L (-2.0-2.0); BG CARBOXYHEMOGLOBIN 0.8 % (0.5-1.5); BG DEOXYHEMOGLOBIN 4.5 % (0.0-5.0); BG FRACTION INSPIRED OXYGEN 28; BG METHEMOGLOBIN 0.3 % (0.0-1.5); BG OXYGEN SATURATION 95.4 % (92.0-98.5); BG OXYHEMOGLOBIN 94.4 % (94.0-97.0); BG PCO2 32.8 mmHg (35.0-45.0); BG PH 7.444 (7.350-7.450); BG PO2 76.6 mmHg (75.0-100.0); BG SAMPLE SITE ALINE; BG TOTAL HEMOGLOBIN 14.2 g/dL (12.0-18.0); BG VENT MODE NASAL CANNULA
[2023-11-19 12:27] LABS: NUCLEATED RED BLOOD CELLS 2 /100 WBC; PLATELET ESTIMATE SLIGHTLY DECREASED
[2023-11-20] VITALS (102 sets, daily range): BP systolic 78–136; BP diastolic 50–91; PULSE 54–98; RESP 10–23; TEMP 97.3–98.2
[2023-11-20 06:19] LABS: HEMATOCRIT. 29.2 % (36.0-48.0); HEMOGLOBIN. 9.6 g/dL (12.0-16.0); MEAN CORPUSCULAR HEMOGLOBIN 29.5 pg (28.0-32.0); MEAN CORPUSCULAR HGB CONC 32.9 g/dL (31.0-37.0); MEAN CORPUSCULAR VOLUME 89.8 fL (81.0-99.0); MEAN PLATELET VOLUME 12.1 fl (7.4-10.4); PLATELET 108 x1000/uL (130-400); RED BLOOD CELL COUNT 3.25 mill/uL (4.2-5.4); RED CELL DISTRIBUTION WIDTH 14.1 % (11.6-14.6); WHITE BLOOD COUNT 34.8 x1000/uL (4.5-11.0)
[2023-11-20 07:00] LABS: DIFFERENTIAL COMMENT 1
[2023-11-20 07:02] LABS: CALCIUM 6.8 mg/dL (8.7-10.4); CARBON DIOXIDE 21 mEq/L (21-32); CHLORIDE 98 mEq/L (98-107); CREATININE 4.6 mg/dL (0.6-1.0); GLUCOSE 125 mg/dL (70-105)
[2023-11-20] MEDS: METHYLPREDNISOLONE SOD SUCC 40MG/ML (ACT-O-VIAL) IV SCH (08:32)
[2023-11-20 08:46] LABS: SODIUM 128 mEq/L (136-145); UREA NITROGEN BLOOD 105 mg/dL (9-23)
[2023-11-20 08:48] LABS: PHOSPHORUS 8.5 mg/dL (2.5-4.9)
[2023-11-20] MEDS: MIDODRINE HCL 5MG TABLET PO SCH (13:16)
[2023-11-20 15:41] LABS: PLATELET ESTIMATE SLIGHTLY DECREASED
[2023-11-21] VITALS (60 sets, daily range): BP systolic 86–112; BP diastolic 54–73; PULSE 59–82; RESP 11–24; TEMP 97.4–98.6
[2023-11-21 05:44] LABS: HEMATOCRIT. 28.9 % (36.0-48.0); HEMOGLOBIN. 9.5 g/dL (12.0-16.0); MEAN CORPUSCULAR HEMOGLOBIN 30.4 pg (28.0-32.0); MEAN CORPUSCULAR VOLUME 92.2 fL (81.0-99.0); MEAN PLATELET VOLUME 12.4 fl (7.4-10.4); PLATELET 105 x1000/uL (130-400); RED BLOOD CELL COUNT 3.13 mill/uL (4.2-5.4); WHITE BLOOD COUNT 28.1 x1000/uL (4.5-11.0)
[2023-11-21 06:05] LABS: DIFFERENTIAL COMMENT 1
[2023-11-21 06:10] LABS: CALCIUM 6.7 mg/dL (8.7-10.4); CARBON DIOXIDE 24 mEq/L (21-32); CHLORIDE 100 mEq/L (98-107); CREATININE 3.6 mg/dL (0.6-1.0); GLUCOSE 114 mg/dL (70-105); PHOSPHORUS 6.9 mg/dL (2.5-4.9); POTASSIUM 5.1 mEq/L (3.5-5.1); SODIUM 130 mEq/L (136-145); UREA NITROGEN BLOOD 76 mg/dL (9-23)
[2023-11-21] MEDS: CEFAZOLIN 1000MG PREMIX 50 ML IV SCH (08:12)
[2023-11-21] MEDS ORDERED: CALCIUM GLUCONATE 100MG/ML 10ML VIAL IV ONE (12:15)
[2023-11-21] MEDS: DOCUSATE SODIUM 250MG CAPSULE PO SCH (12:19)
[2023-11-21] MEDS: CALCITRIOL 0.25MCG CAPSULE PO SCH (14:31)
[2023-11-21] MEDS: CALCIUM GLUCONATE 1GM PREMIX 50 ML IV SCH (14:37)
[2023-11-21] MEDS: LACTULOSE 20G/30ML UDC PO PRN (15:27)
[2023-11-21 17:04] LABS: PLATELET ESTIMATE DECREASED
[2023-11-22] VITALS (97 sets, daily range): BP systolic 75–122; BP diastolic 54–81; PULSE 55–90; RESP 10–22; TEMP 96.8–98.5
[2023-11-22 05:39] LABS: HEMATOCRIT. 28.3 % (36.0-48.0); HEMOGLOBIN. 9.5 g/dL (12.0-16.0); MEAN CORPUSCULAR HGB CONC 33.6 g/dL (31.0-37.0); MEAN CORPUSCULAR VOLUME 92.5 fL (81.0-99.0); MEAN PLATELET VOLUME 12.6 fl (7.4-10.4); PLATELET 93 x1000/uL (130-400); RED BLOOD CELL COUNT 3.06 mill/uL (4.2-5.4); RED CELL DISTRIBUTION WIDTH 14.1 % (11.6-14.6); WHITE BLOOD COUNT 25.6 x1000/uL (4.5-11.0)
[2023-11-22 05:55] LABS: CHLORIDE 97 mEq/L (98-107); POTASSIUM 5.2 mEq/L (3.5-5.1); SODIUM 129 mEq/L (136-145)
[2023-11-22 05:56] LABS: CALCIUM 7.1 mg/dL (8.7-10.4); CARBON DIOXIDE 23 mEq/L (21-32)
[2023-11-22 06:01] LABS: CREATININE 3.4 mg/dL (0.6-1.0); GLUCOSE 100 mg/dL (70-105); UREA NITROGEN BLOOD 81 mg/dL (9-23)
[2023-11-22 06:46] LABS: PHOSPHORUS 8.2 mg/dL (2.5-4.9)
[2023-11-22 06:52] LABS: DIFFERENTIAL COMMENT 1
[2023-11-22] MEDS: LIDOCAINE 2% 6ML GLYDO MM NR (08:30)
[2023-11-22] MEDS ORDERED: LIDOCAINE HCL 2% JELLY 5ML TOP NR (08:30)
[2023-11-22] MEDS: CALCITRIOL 0.25MCG CAPSULE PO SCH (10:56)
[2023-11-22] MEDS: CALCIUM CARBONATE 500MG TABLET CHEW PO SCH (10:56)
[2023-11-22] MEDS: LIDOCAINE HCL/EPINEPHRINE 1%-EPI 1:100,000 20 ML VIAL INFIL SCH (10:57)
[2023-11-22] MEDS: SODIUM HYPOCHLORITE 0.125% 473ML SOLUTION TOP SCH (11:15)
[2023-11-22] MEDS: BISACODYL 10MG SUPP PR PRN (12:27)
[2023-11-22 18:04] LABS: PLATELET ESTIMATE NORMAL
[2023-11-23] VITALS (42 sets, daily range): BP systolic 92–110; BP diastolic 57–75; PULSE 65–90; RESP 10–21; TEMP 97.2–98.2
[2023-11-23 06:33] LABS: HEMATOCRIT. 30.7 % (36.0-48.0); HEMOGLOBIN. 10.3 g/dL (12.0-16.0); MEAN CORPUSCULAR HEMOGLOBIN 31.1 pg (28.0-32.0); MEAN CORPUSCULAR HGB CONC 33.4 g/dL (31.0-37.0); MEAN PLATELET VOLUME 12.3 fl (7.4-10.4); PLATELET 102 x1000/uL (130-400); RED CELL DISTRIBUTION WIDTH 14.4 % (11.6-14.6); WHITE BLOOD COUNT 22.8 x1000/uL (4.5-11.0)
[2023-11-23 06:34] LABS: CALCIUM 7.5 mg/dL (8.7-10.4); POTASSIUM 4.5 mEq/L (3.5-5.1)
[2023-11-23 06:40] LABS: CREATININE 2.9 mg/dL (0.6-1.0)
[2023-11-23 07:01] LABS: DIFFERENTIAL COMMENT 1
[2023-11-23 11:37] LABS: ANISOCYTOSIS 1+; PLATELET ESTIMATE SLIGHTLY DECREASED
[2023-11-24] VITALS (12 sets, daily range): BP systolic 91–106; BP diastolic 59–69; PULSE 60–71; RESP 11–18; TEMP 97.4–97.8
[2023-11-24 07:04] LABS: CHLORIDE 99 mEq/L (98-107); POTASSIUM 4.9 mEq/L (3.5-5.1); SODIUM 128 mEq/L (136-145)
[2023-11-24 07:05] LABS: CALCIUM 6.8 mg/dL (8.7-10.4); CARBON DIOXIDE 20 mEq/L (21-32)
[2023-11-24 07:10] LABS: CREATININE 2.8 mg/dL (0.6-1.0); GLUCOSE 110 mg/dL (70-105); HEMOGLOBIN. 9.3 g/dL (12.0-16.0); MEAN CORPUSCULAR HEMOGLOBIN 30.1 pg (28.0-32.0); MEAN CORPUSCULAR HGB CONC 33.2 g/dL (31.0-37.0); MEAN CORPUSCULAR VOLUME 90.7 fL (81.0-99.0); MEAN PLATELET VOLUME 12.4 fl (7.4-10.4); PLATELET 80 x1000/uL (130-400); RED BLOOD CELL COUNT 3.09 mill/uL (4.2-5.4); RED CELL DISTRIBUTION WIDTH 14.9 % (11.6-14.6); UREA NITROGEN BLOOD 46 mg/dL (9-23); WHITE BLOOD COUNT 15.2 x1000/uL (4.5-11.0)
[2023-11-24 07:12] LABS: ALANINE AMINOTRANSFERASE 53 IU/L (10-49); ASPARTATE AMINOTRANSFERASE 45 IU/L (<34); PHOSPHORUS 6.5 mg/dL (2.5-4.9); PREALBUMIN 7.8 mg/dl (10.0-40.0)
[2023-11-24 07:13] LABS: PROTEIN TOTAL 4.4 g/dL (6.0-8.3)
[2023-11-24 07:31] LABS: DIFFERENTIAL COMMENT 1
[2023-11-24 12:54] LABS: ANISOCYTOSIS 1+; PLATELET ESTIMATE DECREASED
[2023-11-24] MEDS: FLUDROCORTISONE ACETATE 0.1MG TABLET PO SCH (16:43)
[2023-11-25] VITALS (13 sets, daily range): BP systolic 91–131; BP diastolic 62–97; PULSE 70–88; RESP 10–20; TEMP 97.4–98
[2023-11-25 06:01] LABS: HEMATOCRIT. 24.5 % (36.0-48.0); HEMOGLOBIN. 8.1 g/dL (12.0-16.0); MEAN CORPUSCULAR HEMOGLOBIN 30.3 pg (28.0-32.0); MEAN PLATELET VOLUME 11.8 fl (7.4-10.4); PLATELET 93 x1000/uL (130-400); RED BLOOD CELL COUNT 2.66 mill/uL (4.2-5.4); RED CELL DISTRIBUTION WIDTH 15.9 % (11.6-14.6); WHITE BLOOD COUNT 12.2 x1000/uL (4.5-11.0)
[2023-11-25 06:06] LABS: CALCIUM 7.5 mg/dL (8.7-10.4); CARBON DIOXIDE 23 mEq/L (21-32); CHLORIDE 99 mEq/L (98-107); POTASSIUM 4.2 mEq/L (3.5-5.1); SODIUM 131 mEq/L (136-145)
[2023-11-25 06:09] LABS: PARTIAL THROMBOPLASTIN TIME 27.8 sec (23.4-31.0); PROTHROMBIN TIME 11.4 sec (9.6-11.0)
[2023-11-25 06:11] LABS: CREATININE 2.5 mg/dL (0.6-1.0); GLUCOSE 104 mg/dL (70-105); UREA NITROGEN BLOOD 64 mg/dL (9-23)
[2023-11-25 06:13] LABS: PHOSPHORUS 5.3 mg/dL (2.5-4.9)
[2023-11-25 06:54] LABS: DIFFERENTIAL COMMENT 1
[2023-11-25] MEDS: CALCITRIOL 0.25MCG CAPSULE PO SCH (08:51)
[2023-11-25] MEDS: LIDOCAINE 2% 6ML GLYDO MM NR (09:30)
[2023-11-25] MEDS: MAGNESIUM 2 G PREMIX 50 ML IV NR (10:24)
[2023-11-25] MEDS: SERTRALINE HCL 25MG TABLET PO SCH (10:40)
[2023-11-25 13:25] LABS: ANISOCYTOSIS 1+; PLATELET ESTIMATE SLIGHTLY DECREASED
[2023-11-25] MEDS: TEMAZEPAM 15MG CAPSULE PO PRN (21:30)
[2023-11-26] VITALS (13 sets, daily range): BP systolic 97–114; BP diastolic 63–79; PULSE 67–95; RESP 12–20; TEMP 97–97.8
[2023-11-26 06:15] LABS: HEMOGLOBIN. 8.4 g/dL (12.0-16.0); MEAN CORPUSCULAR HEMOGLOBIN 31.2 pg (28.0-32.0); MEAN CORPUSCULAR HGB CONC 33.8 g/dL (31.0-37.0); MEAN CORPUSCULAR VOLUME 92.2 fL (81.0-99.0); PLATELET 98 x1000/uL (130-400); RED BLOOD CELL COUNT 2.71 mill/uL (4.2-5.4); RED CELL DISTRIBUTION WIDTH 15.4 % (11.6-14.6); WHITE BLOOD COUNT 10.6 x1000/uL (4.5-11.0)
[2023-11-26 06:21] LABS: CARBON DIOXIDE 25 mEq/L (21-32); CHLORIDE 101 mEq/L (98-107); POTASSIUM 3.7 mEq/L (3.5-5.1); SODIUM 134 mEq/L (136-145)
[2023-11-26 06:22] LABS: CALCIUM 7.7 mg/dL (8.7-10.4)
[2023-11-26 06:26] LABS: CREATININE 2.1 mg/dL (0.6-1.0); DIFFERENTIAL COMMENT 1; GLUCOSE 90 mg/dL (70-105)
[2023-11-26 06:27] LABS: UREA NITROGEN BLOOD 56 mg/dL (9-23)
[2023-11-26 06:29] LABS: PHOSPHORUS 4.8 mg/dL (2.5-4.9)
[2023-11-26 16:37] LABS: PLATELET ESTIMATE DECREASED
[2023-11-26] MEDS: MAGNESIUM/ALUMINUM HYDROXIDE/SIMETHICONE 30ML UDC PO PRN (21:21)
[2023-11-27] VITALS (13 sets, daily range): BP systolic 95–118; BP diastolic 59–79; PULSE 70–88; RESP 12–24; TEMP 97–98.8
[2023-11-27 05:47] LABS: HEMATOCRIT. 23.4 % (36.0-48.0); HEMOGLOBIN. 7.9 g/dL (12.0-16.0); MEAN CORPUSCULAR HEMOGLOBIN 30.9 pg (28.0-32.0); MEAN CORPUSCULAR HGB CONC 33.6 g/dL (31.0-37.0); MEAN CORPUSCULAR VOLUME 91.8 fL (81.0-99.0); PLATELET 91 x1000/uL (130-400); RED BLOOD CELL COUNT 2.55 mill/uL (4.2-5.4); RED CELL DISTRIBUTION WIDTH 15.6 % (11.6-14.6); WHITE BLOOD COUNT 9.4 x1000/uL (4.5-11.0)
[2023-11-27 05:59] LABS: CHLORIDE 101 mEq/L (98-107); POTASSIUM 3.8 mEq/L (3.5-5.1); SODIUM 134 mEq/L (136-145)
[2023-11-27 06:00] LABS: CALCIUM 7.7 mg/dL (8.7-10.4); CARBON DIOXIDE 26 mEq/L (21-32)
[2023-11-27 06:05] LABS: CREATININE 1.8 mg/dL (0.6-1.0); GLUCOSE 100 mg/dL (70-105); UREA NITROGEN BLOOD 50 mg/dL (9-23)
[2023-11-27 06:07] LABS: PHOSPHORUS 4.1 mg/dL (2.5-4.9)
[2023-11-27 06:38] LABS: DIFFERENTIAL COMMENT 1
[2023-11-27 14:11] LABS: ANISOCYTOSIS 1+; PLATELET ESTIMATE DECREASED
[2023-11-28] VITALS: BP 119/81; PULSE 78; RESP 16; TEMP 98
[2023-11-28 04:00] VITALS: BP 121/69; PULSE 68; RESP 13; TEMP 97.8
[2023-11-28 08:00] VITALS: BP 120/79; PULSE 72; RESP 18; TEMP 97.6
[2023-11-28 12:00] VITALS: BP 111/70; PULSE 80; RESP 17; TEMP 97.8
[2023-11-28 16:00] VITALS: BP 115/73; PULSE 67
[2023-11-28 16:59] LABS: HEMOGLOBIN. 8.5 g/dL (12.0-16.0); MEAN CORPUSCULAR HGB CONC 33.9 g/dL (31.0-37.0); MEAN CORPUSCULAR VOLUME 94.3 fL (81.0-99.0); PLATELET 87 x1000/uL (130-400); RED BLOOD CELL COUNT 2.65 mill/uL (4.2-5.4); RED CELL DISTRIBUTION WIDTH 15.5 % (11.6-14.6); WHITE BLOOD COUNT 8.7 x1000/uL (4.5-11.0)
[2023-11-28 17:03] LABS: DIFFERENTIAL COMMENT 1
[2023-11-28 17:06] LABS: POTASSIUM 3.5 mEq/L (3.5-5.1)
[2023-11-28 17:07] LABS: CALCIUM 7.4 mg/dL (8.7-10.4)
[2023-11-28 17:12] LABS: CREATININE 1.7 mg/dL (0.6-1.0)
[2023-11-28 17:21] LABS: PLATELET ESTIMATE DECREASED
[2023-11-28 20:00] VITALS: BP 108/62; PULSE 76; RESP 20; TEMP 98.2
[2023-11-29] VITALS: BP 111/62; PULSE 81; RESP 19; TEMP 99
[2023-11-29 04:00] VITALS: BP 108/63; PULSE 79; RESP 20; TEMP 98.2
[2023-11-29 07:16] LABS: BASOPHILS % 0.9 % (0.0-2.0); EOSINOPHILS % 0.6 % (0.0-5.0); HEMATOCRIT. 25.6 % (36.0-48.0); HEMOGLOBIN. 8.4 g/dL (12.0-16.0); LYMPHOCYTES % 7.6 % (20.0-50.0); MEAN CORPUSCULAR HEMOGLOBIN 30.9 pg (28.0-32.0); MEAN CORPUSCULAR HGB CONC 32.8 g/dL (31.0-37.0); MEAN CORPUSCULAR VOLUME 94.1 fL (81.0-99.0); MONOCYTES % 6.2 % (2.0-8.0); NEUTROPHILS % 84.7 % (40.0-76.0); PLATELET 80 x1000/uL (130-400); RED BLOOD CELL COUNT 2.72 mill/uL (4.2-5.4); RED CELL DISTRIBUTION WIDTH 15.7 % (11.6-14.6); WHITE BLOOD COUNT 7.4 x1000/uL (4.5-11.0)
[2023-11-29 07:19] LABS: CHLORIDE 103 mEq/L (98-107); POTASSIUM 3.3 mEq/L (3.5-5.1); SODIUM 135 mEq/L (136-145)
[2023-11-29 07:20] LABS: CARBON DIOXIDE 25 mEq/L (21-32)
[2023-11-29 07:25] LABS: CREATININE 1.4 mg/dL (0.6-1.0); GLUCOSE 91 mg/dL (70-105)
[2023-11-29 07:26] LABS: UREA NITROGEN BLOOD 37 mg/dL (9-23)
[2023-11-29 07:27] LABS: ALANINE AMINOTRANSFERASE 16 IU/L (10-49); ALBUMIN 2.6 g/dL (3.2-4.8); ASPARTATE AMINOTRANSFERASE 39 IU/L (<34)
[2023-11-29 07:28] LABS: BILIRUBIN TOTAL 0.6 mg/dL (0.1-1.0); PHOSPHORUS 3.2 mg/dL (2.5-4.9); PROTEIN TOTAL 5.7 g/dL (6.0-8.3)
[2023-11-29 08:00] VITALS: BP 119/67; PULSE 66; RESP 20; TEMP 97.7
[2023-11-29 12:01] VITALS: BP 112/65; PULSE 65; RESP 20; TEMP 97.7
[2023-11-29] MEDS: MAGNESIUM 2 G PREMIX 50 ML IV SCH (13:43)
[2023-11-29] MEDS: POTASSIUM CHLORIDE 20MEQ TABLET SR PO NR (13:44)
[2023-11-29] MEDS: MAGNESIUM OXIDE 400MG TABLET PO SCH (13:44)
[2023-11-29 16:16] VITALS: BP 118/74; PULSE 69; RESP 20; TEMP 97.6
[2023-11-29 20:37] VITALS: BP 126/65; PULSE 70; RESP 16; TEMP 97.5
[2023-11-30] VITALS (7 sets, daily range): BP systolic 91–126; BP diastolic 55–77; PULSE 68–79; RESP 18–20; TEMP 97.1–98
[2023-11-30 07:37] LABS: BASOPHILS % 0.8 % (0.0-2.0); EOSINOPHILS % 1.3 % (0.0-5.0); HEMATOCRIT. 23.6 % (36.0-48.0); HEMOGLOBIN. 7.8 g/dL (12.0-16.0); LYMPHOCYTES % 8.6 % (20.0-50.0); MEAN CORPUSCULAR HEMOGLOBIN 30.3 pg (28.0-32.0); MEAN CORPUSCULAR VOLUME 91.9 fL (81.0-99.0); MEAN PLATELET VOLUME 9.5 fl (7.4-10.4); MONOCYTES % 6.8 % (2.0-8.0); NEUTROPHILS % 82.5 % (40.0-76.0); PLATELET 80 x1000/uL (130-400); RED BLOOD CELL COUNT 2.57 mill/uL (4.2-5.4); RED CELL DISTRIBUTION WIDTH 15.1 % (11.6-14.6); WHITE BLOOD COUNT 6.9 x1000/uL (4.5-11.0)
[2023-11-30 08:19] LABS: CALCIUM 7.8 mg/dL (8.7-10.4); CHLORIDE 103 mEq/L (98-107); POTASSIUM 3.9 mEq/L (3.5-5.1); SODIUM 134 mEq/L (136-145)
[2023-11-30 08:20] LABS: CARBON DIOXIDE 27 mEq/L (21-32)
[2023-11-30 08:25] LABS: CREATININE 1.3 mg/dL (0.6-1.0); GLUCOSE 101 mg/dL (70-105); UREA NITROGEN BLOOD 30 mg/dL (9-23)
[2023-11-30 08:28] LABS: PHOSPHORUS 3.1 mg/dL (2.5-4.9)
[2023-11-30] MEDS: MAGNESIUM 2 G PREMIX 50 ML IV SCH (12:10)
[2023-11-30] MEDS: MIDODRINE HCL 5MG TABLET PO SCH (21:21)
[2023-12-01] MEDS: TEMAZEPAM 15MG CAPSULE PO PRN (00:41)
[2023-12-01 11:18] LABS: BASOPHILS % 0.8 % (0.0-2.0); EOSINOPHILS % 1.1 % (0.0-5.0); HEMATOCRIT. 23.3 % (36.0-48.0); HEMOGLOBIN. 7.9 g/dL (12.0-16.0); LYMPHOCYTES % 10.4 % (20.0-50.0); MEAN CORPUSCULAR HEMOGLOBIN 31.5 pg (28.0-32.0); MEAN CORPUSCULAR HGB CONC 33.7 g/dL (31.0-37.0); MEAN CORPUSCULAR VOLUME 93.4 fL (81.0-99.0); MEAN PLATELET VOLUME 9.7 fl (7.4-10.4); MONOCYTES % 6.4 % (2.0-8.0); NEUTROPHILS % 81.3 % (40.0-76.0); PLATELET 70 x1000/uL (130-400); RED BLOOD CELL COUNT 2.49 mill/uL (4.2-5.4); WHITE BLOOD COUNT 6.1 x1000/uL (4.5-11.0)
[2023-12-01 11:26] LABS: CHLORIDE 100 mEq/L (98-107); POTASSIUM 4.1 mEq/L (3.5-5.1); SODIUM 132 mEq/L (136-145)
[2023-12-01 11:27] LABS: CALCIUM 7.6 mg/dL (8.7-10.4); CARBON DIOXIDE 27 mEq/L (21-32)
[2023-12-01 11:32] LABS: CREATININE 1.1 mg/dL (0.6-1.0); GLUCOSE 134 mg/dL (70-105); UREA NITROGEN BLOOD 23 mg/dL (9-23)
[2023-12-01 11:34] LABS: PHOSPHORUS 3.2 mg/dL (2.5-4.9)
[2023-12-01 20:00] VITALS: BP 102/52; PULSE 87; RESP 18; TEMP 98.4
[2023-12-02 07:18] LABS: EOSINOPHILS % 2.1 % (0.0-5.0); HEMATOCRIT. 23.9 % (36.0-48.0); HEMOGLOBIN. 7.9 g/dL (12.0-16.0); LYMPHOCYTES % 12.3 % (20.0-50.0); MEAN CORPUSCULAR HEMOGLOBIN 30.8 pg (28.0-32.0); MEAN CORPUSCULAR HGB CONC 33.1 g/dL (31.0-37.0); MEAN CORPUSCULAR VOLUME 92.9 fL (81.0-99.0); MEAN PLATELET VOLUME 9.4 fl (7.4-10.4); MONOCYTES % 6.8 % (2.0-8.0); NEUTROPHILS % 77.8 % (40.0-76.0); PLATELET 74 x1000/uL (130-400); RED BLOOD CELL COUNT 2.57 mill/uL (4.2-5.4); RED CELL DISTRIBUTION WIDTH 15.2 % (11.6-14.6); WHITE BLOOD COUNT 5.5 x1000/uL (4.5-11.0)
[2023-12-02 08:00] VITALS: BP 127/61; PULSE 88; RESP 19; TEMP 98.1
[2023-12-02 08:18] LABS: CHLORIDE 101 mEq/L (98-107); POTASSIUM 3.9 mEq/L (3.5-5.1); SODIUM 133 mEq/L (136-145)
[2023-12-02 08:19] LABS: CALCIUM 8.1 mg/dL (8.7-10.4)
[2023-12-02 08:21] LABS: CREATININE 0.9 mg/dL (0.6-1.0)
[2023-12-02 08:22] LABS: GLUCOSE 89 mg/dL (70-105)
[2023-12-02 08:24] LABS: UREA NITROGEN BLOOD 24 mg/dL (9-23)
[2023-12-02 08:26] LABS: CARBON DIOXIDE 27 mEq/L (21-32); PHOSPHORUS 3.9 mg/dL (2.5-4.9); THYROID STIMULATING HORMONE 6.32 uIU/mL (0.55-4.78)
[2023-12-02] MEDS ORDERED: LIDOCAINE HCL/EPINEPHRINE 1%-EPI 1:100,000 20 ML VIAL INFIL NR (11:00)
[2023-12-02 12:00] VITALS: BP 101/62; PULSE 83; RESP 18; TEMP 100.6
[2023-12-02 16:00] VITALS: BP 122/62; PULSE 77; RESP 18; TEMP 100.8
[2023-12-02 20:00] VITALS: BP 97/55; PULSE 83; RESP 20; TEMP 100.4
[2023-12-02] MEDS: MAGNESIUM OXIDE 400MG TABLET PO SCH (21:12)
[2023-12-03] VITALS: BP 101/60; PULSE 79; RESP 20; TEMP 98.4
[2023-12-03 04:00] VITALS: BP 116/72; PULSE 80; RESP 20; TEMP 98.8
[2023-12-03 08:00] VITALS: BP 116/75; PULSE 74; RESP 20; TEMP 97.9
[2023-12-03 12:00] VITALS: BP 120/70; PULSE 75; RESP 20; TEMP 97.8
[2023-12-03 15:56] LABS: BASOPHILS % 0.8 % (0.0-2.0); EOSINOPHILS % 2.7 % (0.0-5.0); LYMPHOCYTES % 11.6 % (20.0-50.0); MEAN CORPUSCULAR HEMOGLOBIN 30.7 pg (28.0-32.0); MEAN CORPUSCULAR HGB CONC 33.3 g/dL (31.0-37.0); MEAN CORPUSCULAR VOLUME 92.4 fL (81.0-99.0); MEAN PLATELET VOLUME 9.6 fl (7.4-10.4); NEUTROPHILS % 75.9 % (40.0-76.0); PLATELET 83 x1000/uL (130-400); RED CELL DISTRIBUTION WIDTH 14.8 % (11.6-14.6); WHITE BLOOD COUNT 5.3 x1000/uL (4.5-11.0)
[2023-12-03 16:00] VITALS: BP 128/70; PULSE 80; RESP 21; TEMP 98.2
[2023-12-03] MEDS: LIDOCAINE HCL 4% CREAM 76GM TUBE TP SCH (18:08)
[2023-12-03 20:00] VITALS: BP 102/60; PULSE 77; RESP 19; TEMP 97.2
[2023-12-03] MEDS ORDERED: CEFEPIME 1GM IN DEXT 5% 50ML IV SCH (20:45)
[2023-12-03] MEDS: CEFEPIME 1GM/50ML 50 ML IV SCH (22:12)
[2023-12-04] VITALS: BP 126/69; PULSE 71; RESP 20; TEMP 98.5
[2023-12-04 04:00] VITALS: BP 113/64; PULSE 77; RESP 18; TEMP 100.8
[2023-12-04 05:50] LABS: BASOPHILS % 1.1 % (0.0-2.0); EOSINOPHILS % 3.8 % (0.0-5.0); HEMATOCRIT. 24.2 % (36.0-48.0); HEMOGLOBIN. 8.1 g/dL (12.0-16.0); LYMPHOCYTES % 20.1 % (20.0-50.0); MEAN CORPUSCULAR HEMOGLOBIN 30.9 pg (28.0-32.0); MEAN CORPUSCULAR HGB CONC 33.5 g/dL (31.0-37.0); MEAN CORPUSCULAR VOLUME 92.2 fL (81.0-99.0); MEAN PLATELET VOLUME 9.7 fl (7.4-10.4); MONOCYTES % 8.9 % (2.0-8.0); NEUTROPHILS % 66.1 % (40.0-76.0); PLATELET 99 x1000/uL (130-400); RED BLOOD CELL COUNT 2.62 mill/uL (4.2-5.4); RED CELL DISTRIBUTION WIDTH 14.6 % (11.6-14.6); WHITE BLOOD COUNT 4.8 x1000/uL (4.5-11.0)
[2023-12-04 05:53] LABS: CHLORIDE 101 mEq/L (98-107); POTASSIUM 3.7 mEq/L (3.5-5.1); SODIUM 135 mEq/L (136-145)
[2023-12-04 05:54] LABS: CALCIUM 7.9 mg/dL (8.7-10.4); CARBON DIOXIDE 27 mEq/L (21-32)
[2023-12-04 05:59] LABS: GLUCOSE 85 mg/dL (70-105); UREA NITROGEN BLOOD 21 mg/dL (9-23)
[2023-12-04 06:01] LABS: PHOSPHORUS 4.3 mg/dL (2.5-4.9)
[2023-12-04 08:00] VITALS: BP 116/70; PULSE 79; RESP 20; TEMP 97.6
[2023-12-04 11:28] LABS: CLARITY URINE CLEAR (CLEAR); COLOR URINE YELLOW (YELLOW); GLUCOSE URINE NEGATIVE (NEGATIVE); KETONES URINE NEGATIVE (NEGATIVE); LEUKOCYTE ESTERASE URINE TRACE (NEGATIVE); NITRITE URINE NEGATIVE (NEGATIVE); OCCULT BLOOD URINE 1+ (NEGATIVE); PROTEIN URINE TRACE (NEGATIVE); SPECIFIC GRAVITY URINE 1.012 (1.005-1.030); UROBILINOGEN URINE 0.2 E.U./dL (0.2-1.0)
[2023-12-04 12:00] VITALS: BP 106/62; PULSE 74; RESP 19; TEMP 97.8
[2023-12-04] MEDS: MAGNESIUM 4 G PREMIX 100 ML IV SCH (12:14)
[2023-12-04 13:33] LABS: COARSE GRANULAR CASTS URINE 0-5 /lpf; HYALINE CASTS URINE 0-5 /lpf
[2023-12-04 13:35] LABS: BACTERIA URINE TRACE; CALCIUM OXALATE CRYSTALS URINE 1+ /lpf; SQUAMOUS EPITHELIAL CELL URINE NONE SEEN /lpf (RARE/1+); YEAST URINE 1+
[2023-12-04 16:00] VITALS: BP 115/71; PULSE 70; RESP 19; TEMP 98.6
[2023-12-04] MEDS: CEFEPIME 2GM/100ML 100 ML IV SCH (17:27)
[2023-12-04 20:00] VITALS: BP 99/61; PULSE 76; RESP 18; TEMP 99.3
[2023-12-05] VITALS: BP 101/58; PULSE 76; RESP 20; TEMP 99
[2023-12-05 04:00] VITALS: BP 113/71; PULSE 71; RESP 20; TEMP 96.8
[2023-12-05 08:00] VITALS: BP 115/70; PULSE 67; RESP 20; TEMP 98.1
[2023-12-05 12:00] VITALS: BP 109/67; PULSE 89; RESP 20; TEMP 98.1
[2023-12-05 16:00] VITALS: BP 106/63; PULSE 86; RESP 20; TEMP 99.5
[2023-12-05 20:00] VITALS: BP 97/56; PULSE 76; RESP 18; TEMP 97.2
[2023-12-06 04:00] VITALS: BP 109/64; PULSE 83; RESP 18; TEMP 98.1
[2023-12-06 06:39] LABS: BASOPHILS % 0.9 % (0.0-2.0); EOSINOPHILS % 4.3 % (0.0-5.0); HEMATOCRIT. 23.9 % (36.0-48.0); LYMPHOCYTES % 21.2 % (20.0-50.0); MEAN CORPUSCULAR HEMOGLOBIN 30.2 pg (28.0-32.0); MEAN CORPUSCULAR HGB CONC 33.3 g/dL (31.0-37.0); MEAN CORPUSCULAR VOLUME 90.7 fL (81.0-99.0); MEAN PLATELET VOLUME 9.1 fl (7.4-10.4); MONOCYTES % 10.8 % (2.0-8.0); NEUTROPHILS % 62.8 % (40.0-76.0); PLATELET 157 x1000/uL (130-400); RED BLOOD CELL COUNT 2.64 mill/uL (4.2-5.4); RED CELL DISTRIBUTION WIDTH 14.5 % (11.6-14.6); WHITE BLOOD COUNT 4.9 x1000/uL (4.5-11.0)
[2023-12-06 06:43] LABS: CHLORIDE 101 mEq/L (98-107); POTASSIUM 3.3 mEq/L (3.5-5.1); SODIUM 135 mEq/L (136-145)
[2023-12-06 06:44] LABS: CALCIUM 8.7 mg/dL (8.7-10.4); CARBON DIOXIDE 30 mEq/L (21-32)
[2023-12-06 06:49] LABS: CREATININE 0.9 mg/dL (0.6-1.0); GLUCOSE 86 mg/dL (70-105); UREA NITROGEN BLOOD 19 mg/dL (9-23)
[2023-12-06 06:51] LABS: PHOSPHORUS 4.8 mg/dL (2.5-4.9)
[2023-12-06 08:00] VITALS: BP 92/61; PULSE 78; RESP 18; TEMP 98.2
[2023-12-06] MEDS: POTASSIUM CHLORIDE 20MEQ TABLET SR PO NR (09:46)
[2023-12-06 12:00] VITALS: BP 108/65; PULSE 79; RESP 19; TEMP 98.8
[2023-12-06 16:00] VITALS: BP 91/50; PULSE 78; RESP 18; TEMP 97.9
[2023-12-06] MEDS: VALACYCLOVIR HCL 500MG TABLET PO SCH (21:58)
[2023-12-06] MEDS: TEMAZEPAM 15MG CAPSULE PO PRN (22:36)
[2023-12-07] VITALS: BP 112/52; PULSE 85; RESP 18; TEMP 98
[2023-12-07 04:00] VITALS: BP 113/70; PULSE 18; RESP 18; TEMP 97.6
[2023-12-07 08:00] VITALS: BP 110/69; PULSE 72; RESP 18; TEMP 97.7
[2023-12-07 08:01] LABS: BASOPHILS % 0.8 % (0.0-2.0); EOSINOPHILS % 4.7 % (0.0-5.0); HEMATOCRIT. 22.9 % (36.0-48.0); HEMOGLOBIN. 7.7 g/dL (12.0-16.0); LYMPHOCYTES % 26.5 % (20.0-50.0); MEAN CORPUSCULAR HEMOGLOBIN 30.5 pg (28.0-32.0); MEAN CORPUSCULAR HGB CONC 33.8 g/dL (31.0-37.0); MEAN CORPUSCULAR VOLUME 90.1 fL (81.0-99.0); MEAN PLATELET VOLUME 9.2 fl (7.4-10.4); MONOCYTES % 12.1 % (2.0-8.0); NEUTROPHILS % 55.9 % (40.0-76.0); PLATELET 200 x1000/uL (130-400); RED BLOOD CELL COUNT 2.54 mill/uL (4.2-5.4); RED CELL DISTRIBUTION WIDTH 14.8 % (11.6-14.6); WHITE BLOOD COUNT 4.9 x1000/uL (4.5-11.0)
[2023-12-07 08:13] LABS: CARBON DIOXIDE 29 mEq/L (21-32); CHLORIDE 101 mEq/L (98-107); POTASSIUM 3.7 mEq/L (3.5-5.1); SODIUM 136 mEq/L (136-145)
[2023-12-07 08:18] LABS: CREATININE 0.7 mg/dL (0.6-1.0); GLUCOSE 88 mg/dL (70-105)
[2023-12-07 08:19] LABS: UREA NITROGEN BLOOD 16 mg/dL (9-23)
[2023-12-07 08:21] LABS: PHOSPHORUS 4.5 mg/dL (2.5-4.9)
[2023-12-07 08:30] LABS: CALCIUM 9.4 mg/dL (8.7-10.4)
[2023-12-07 12:00] VITALS: BP 88/47; PULSE 98; RESP 18; TEMP 96.4
[2023-12-07 16:00] VITALS: BP 104/60; PULSE 68; RESP 17; TEMP 97.5
[2023-12-07 20:00] VITALS: BP 100/53; PULSE 94; RESP 20; TEMP 97.9
[2023-12-08] VITALS: BP 111/57; PULSE 83; RESP 20; TEMP 97.5
[2023-12-08 04:00] VITALS: BP 109/66; PULSE 78; RESP 20; TEMP 97.7
[2023-12-08 08:00] VITALS: BP 101/61; PULSE 83; RESP 19; TEMP 97.9
[2023-12-08 12:00] VITALS: BP 98/55; PULSE 80; RESP 19; TEMP 98.9
[2023-12-08 16:00] VITALS: BP 108/65; PULSE 81; RESP 19; TEMP 97.9
[2023-12-08] MEDS ORDERED: VALA100044 MT (18:58)
[2023-12-08 20:00] VITALS: BP 111/62; PULSE 79; RESP 18; TEMP 98.2
[2023-12-09 04:00] VITALS: BP 105/62; PULSE 75; RESP 18; TEMP 97.5
[2023-12-09 06:54] LABS: HEMATOCRIT. 22.6 % (36.0-48.0); HEMOGLOBIN. 7.5 g/dL (12.0-16.0); MEAN CORPUSCULAR HEMOGLOBIN 29.9 pg (28.0-32.0); MEAN CORPUSCULAR HGB CONC 33.1 g/dL (31.0-37.0); MEAN CORPUSCULAR VOLUME 90.3 fL (81.0-99.0); MEAN PLATELET VOLUME 8.8 fl (7.4-10.4); PLATELET 314 x1000/uL (130-400); RED BLOOD CELL COUNT 2.51 mill/uL (4.2-5.4); RED CELL DISTRIBUTION WIDTH 15.3 % (11.6-14.6); WHITE BLOOD COUNT 6.7 x1000/uL (4.5-11.0)
[2023-12-09 07:20] LABS: CALCIUM 10.2 mg/dL (8.7-10.4); CHLORIDE 101 mEq/L (98-107); POTASSIUM 3.8 mEq/L (3.5-5.1); SODIUM 136 mEq/L (136-145)
[2023-12-09 07:21] LABS: CARBON DIOXIDE 29 mEq/L (21-32); DIFFERENTIAL COMMENT 1
[2023-12-09 07:26] LABS: CREATININE 0.8 mg/dL (0.6-1.0); GLUCOSE 88 mg/dL (70-105)
[2023-12-09 07:27] LABS: UREA NITROGEN BLOOD 15 mg/dL (9-23)
[2023-12-09 07:29] LABS: PHOSPHORUS 4.7 mg/dL (2.5-4.9)
[2023-12-09 08:00] VITALS: BP 113/56; PULSE 68; RESP 20; TEMP 98.2
[2023-12-09] MEDS ORDERED: LIDOCAINE HCL/EPINEPHRINE 1%-EPI 1:100,000 20 ML VIAL INFIL SCH (08:00)
[2023-12-09 10:38] LABS: ANISOCYTOSIS 1+; PLATELET ESTIMATE NORMAL
[2023-12-09 11:11] VITALS: BP 113/56; PULSE 68; TEMP 98.6; O2SAT 99
[2023-12-09 11:45] LABS: BG BASE EXCESS 6.3 mmol/L (-2.0-2.0); BG CARBOXYHEMOGLOBIN 0.2 % (0.5-1.5); BG DEOXYHEMOGLOBIN 3.7 % (0.0-5.0); BG FRACTION INSPIRED OXYGEN 21; BG HCO3 ACT 29.3 mmol/L (22.0-26.0); BG METHEMOGLOBIN 0.3 % (0.0-1.5); BG OXYGEN SATURATION 96.3 % (92.0-98.5); BG OXYHEMOGLOBIN 95.8 % (94.0-97.0); BG PCO2 35.7 mmHg (35.0-45.0); BG PH 7.532 (7.350-7.450); BG SAMPLE SITE RIGHT BRACHIAL; BG TOTAL HEMOGLOBIN 8.5 g/dL (12.0-18.0); BG VENT MODE ROOM AIR
[2023-12-09 16:00] VITALS: BP 111/61; PULSE 73; RESP 18; TEMP 96.3
[2023-12-09] MEDS: CARVEDILOL 3.125 MG TABLET PO SCH (19:15)
[2023-12-09 20:00] VITALS: BP 100/56; PULSE 99; RESP 20; TEMP 97.9
[2023-12-09 23:00] VITALS: BP 119/60; PULSE 80; RESP 20; TEMP 97.9
[2023-12-10 04:00] VITALS: BP 101/62; PULSE 73; RESP 18; TEMP 97.6
[2023-12-10 07:35] LABS: BG BASE EXCESS 6.3 mmol/L (-2.0-2.0); BG CARBOXYHEMOGLOBIN 0.3 % (0.5-1.5); BG DEOXYHEMOGLOBIN 7.2 % (0.0-5.0); BG HCO3 ACT 30.4 mmol/L (22.0-26.0); BG METHEMOGLOBIN 0.4 % (0.0-1.5); BG OXYGEN SATURATION 92.7 % (92.0-98.5); BG OXYHEMOGLOBIN 92.1 % (94.0-97.0); BG PCO2 41.9 mmHg (35.0-45.0); BG PH 7.478 (7.350-7.450); BG PO2 66.8 mmHg (75.0-100.0); BG SAMPLE SITE RIGHT RADIAL; BG TOTAL HEMOGLOBIN 10.4 g/dL (12.0-18.0); BG VENT MODE ROOM AIR
[2023-12-10 08:00] VITALS: BP 102/63; PULSE 63; RESP 20; TEMP 98.1
[2023-12-10 08:31] VITALS: PULSE 63
== END 2023-12-10 09:36 | disposition home or self-care (01) | DRG 853 ==
LOC: ER 00:56 → CVICU 03:20 → EDBD 03:20 → 5EST 11-23 10:25 → 7WST 11-28 17:45 → 6EST 11-30 23:56 → 7WST 12-09 22:11
PROVIDERS: ADMIT Internal Medicine; ATTEND Internal Medicine
PROC: 5A1955Z Respiratory Ventilation, Greater than 96 Consecutive Hours (ICD-10-PCS; principal; 2023-11-11)
PROC: 0BH17EZ Insertion of Endotracheal Airway into Trachea, Via Natural or Artificial Opening (ICD-10-PCS; 2023-11-11)
PROC: 02HV33Z Insertion of Infusion Device into Superior Vena Cava, Percutaneous Approach (ICD-10-PCS; 2023-11-11)
PROC: B548ZZA Ultrasonography of Superior Vena Cava, Guidance (ICD-10-PCS; 2023-11-11)
PROC: 5A1D70Z Performance of Urinary Filtration, Intermittent, Less than 6 Hours Per Day (ICD-10-PCS; 2023-11-11)
PROC: 5A1D70Z Performance of Urinary Filtration, Intermittent, Less than 6 Hours Per Day (ICD-10-PCS; 2023-11-12)
PROC: 0JBL0ZZ Excision of Right Upper Leg Subcutaneous Tissue and Fascia, Open Approach (ICD-10-PCS; 2023-11-13)
PROC: 5A1D70Z Performance of Urinary Filtration, Intermittent, Less than 6 Hours Per Day (ICD-10-PCS; 2023-11-13)
PROC: 5A1D70Z Performance of Urinary Filtration, Intermittent, Less than 6 Hours Per Day (ICD-10-PCS; 2023-11-14)
PROC: 02HV33Z Insertion of Infusion Device into Superior Vena Cava, Percutaneous Approach (ICD-10-PCS; 2023-11-15)
PROC: B548ZZA Ultrasonography of Superior Vena Cava, Guidance (ICD-10-PCS; 2023-11-15)
PROC: 5A1D70Z Performance of Urinary Filtration, Intermittent, Less than 6 Hours Per Day (ICD-10-PCS; 2023-11-15)
PROC: 5A1D70Z Performance of Urinary Filtration, Intermittent, Less than 6 Hours Per Day (ICD-10-PCS; 2023-11-16)
PROC: 5A1D70Z Performance of Urinary Filtration, Intermittent, Less than 6 Hours Per Day (ICD-10-PCS; 2023-11-18)
PROC: 5A1D70Z Performance of Urinary Filtration, Intermittent, Less than 6 Hours Per Day (ICD-10-PCS; 2023-11-20)
PROC: 5A1D70Z Performance of Urinary Filtration, Intermittent, Less than 6 Hours Per Day (ICD-10-PCS; 2023-11-22)
DX: A41.9 Sepsis, unspecified organism (principal); I21.A1 Myocardial infarction type 2; N17.0 Acute kidney failure with tubular necrosis; R65.21 Severe sepsis with septic shock; J96.01 Acute respiratory failure with hypoxia; K72.00 Acute and subacute hepatic failure without coma; I49.01 Ventricular fibrillation; I50.23 Acute on chronic systolic (congestive) heart failure; M72.6 Necrotizing fasciitis; I47.20 Ventricular tachycardia, unspecified; M62.82 Rhabdomyolysis; C78.7 Secondary malignant neoplasm of liver and intrahepatic bile duct; R18.8 Other ascites; E87.1 Hypo-osmolality and hyponatremia; E83.51 Hypocalcemia; E83.42 Hypomagnesemia; E86.0 Dehydration; E87.5 Hyperkalemia; M48.02 Spinal stenosis, cervical region; B95.0 Streptococcus, group A, as the cause of diseases classified elsewhere; D64.9 Anemia, unspecified; F32.9 Major depressive disorder, single episode, unspecified; G47.00 Insomnia, unspecified; I77.810 Thoracic aortic ectasia; K52.9 Noninfective gastroenteritis and colitis, unspecified; L89.611 Pressure ulcer of right heel, stage 1; L89.621 Pressure ulcer of left heel, stage 1; M47.892 Other spondylosis, cervical region; Z99.2 Dependence on renal dialysis; Z90.49 Acquired absence of other specified parts of digestive tract; Z82.49 Family history of ischemic heart disease and other diseases of the circulatory system; Z80.6 Family history of leukemia; Z80.1 Family history of malignant neoplasm of trachea, bronchus and lung; Z79.899 Other long term (current) drug therapy; Z79.52 Long term (current) use of systemic steroids; Z74.01 Bed confinement status; Z68.29 Body mass index [BMI] 29.0-29.9, adult; Z63.4 Disappearance and death of family member
CPT/HCPCS: 31500; 36415; 36556; 36573; 36600; 70490; 71045; 71250; 72131; 72192; 74018; 74176; 76700; 76937; 80048; 80053; 80061; 80076; 80202; 81003; 82330; 82375; 82550; 82570; 82607; 82728; 82746; 82805; 82962; 83540; 83550; 83605; 83735; 83880; 84100; 84134; 84145; 84300; 84443; 84478; 84484; 85014; 85018; 85025; 85027; 86705; 86709; 86850; 86900; 87070; 87075; 87077; 87106; 87186; 87340; 87420; 87426; 88305; 90935; 92523; 92610; 93005; 93306; 93308; 93970; 94002; 94003; 94640; 97110; 97116; 97162; 97167; 97530; 97535; 99291; A6261; C1725; C1752; C9113; J0282; J0610; J0690; J0692; J0696; J1100; J1170; J1200; J1644; J1650; J1885; J2185; J2250; J2270; J2370; J2405; J2543; J2704; J2920; J3010; J3370; J3475; J3480; J3490; J7030; J7050; J7060; J7070; J7120; P9047; Q9957; A4315